=== PATIENT | male | born 1970 | race Caucasian/White ===

== ENCOUNTER → 2021-02-06 10:15 | Outpatient (BNVA) | payer OTHER, SELFPAY | PROVIDERS: Visit Provider Family Medicine | DX: I10 Essential (primary) hypertension (principal); H93.12 Tinnitus, left ear; Z13.220 Encounter for screening for lipoid disorders; Z13.6 Encounter for screening for cardiovascular disorders; Z13.1 Encounter for screening for diabetes mellitus; T88.7XXA Unspecified adverse effect of drug or medicament, initial encounter | CPT/HCPCS: 80053; 80061 ==

== ENCOUNTER → 2021-10-28 10:20 | Outpatient (BNVA) | payer OTHER, SELFPAY | PROVIDERS: Visit Provider Nurse Practitioner Family | DX: Z20.822 Contact with and (suspected) exposure to COVID-19 (principal) | CPT/HCPCS: 87635 ==

== ENCOUNTER → 2022-03-06 15:31 | Outpatient (BNVA) | payer OTHER, SELFPAY | PROVIDERS: PCP Family Medicine; Visit Provider Family Medicine | DX: I10 Essential (primary) hypertension (principal); Z72.0 Tobacco use | CPT/HCPCS: 80053; 80061 ==

== ENCOUNTER → 2023-03-31 13:46 | Outpatient (BNVA) | payer OTHER, SELFPAY | PROVIDERS: PCP Family Medicine; Visit Provider Family Medicine | DX: I10 Essential (primary) hypertension (principal); I16.0 Hypertensive urgency; Z72.0 Tobacco use; Z13.220 Encounter for screening for lipoid disorders; Z13.6 Encounter for screening for cardiovascular disorders; Z53.20 Procedure and treatment not carried out because of patient's decision for unspecified reasons | CPT/HCPCS: 80053; 80061 ==

== ENCOUNTER → 2024-03-18 13:29 | Outpatient (BNVA) | payer OTHER, SELFPAY | PROVIDERS: PCP Family Medicine; Visit Provider Family Medicine | DX: I10 Essential (primary) hypertension (principal); R73.9 Hyperglycemia, unspecified; Z72.0 Tobacco use; Z13.220 Encounter for screening for lipoid disorders; Z13.6 Encounter for screening for cardiovascular disorders; Z53.20 Procedure and treatment not carried out because of patient's decision for unspecified reasons | CPT/HCPCS: 80053; 80061; 83036 ==

== ENCOUNTER → 2024-07-13 09:36 | Outpatient (BNVA) | payer OTHER, SELFPAY | PROVIDERS: PCP Family Medicine; Visit Provider Nurse Practitioner | DX: R19.7 Diarrhea, unspecified (principal) | CPT/HCPCS: 87045; 87177; 87209; 87427; 87449 ==

== ENCOUNTER → 2025-03-15 14:42 | Outpatient (BNVA) | payer OTHER, SELFPAY | PROVIDERS: PCP Family Medicine; Visit Provider Family Medicine | DX: Z13.6 Encounter for screening for cardiovascular disorders (principal); Z12.5 Encounter for screening for malignant neoplasm of prostate; Z13.220 Encounter for screening for lipoid disorders; I10 Essential (primary) hypertension; R10.9 Unspecified abdominal pain; R19.7 Diarrhea, unspecified; R73.9 Hyperglycemia, unspecified; Z83.79 Family history of other diseases of the digestive system | CPT/HCPCS: 80053; 80061; 82784; 83516; 85025; G0103 ==

== ENCOUNTER → 2025-06-14 08:17 | Outpatient (BNVA) | payer OTHER, SELFPAY | PROVIDERS: PCP Family Medicine; Referring Provider Family Medicine; Visit Provider Family Medicine | DX: E78.5 Hyperlipidemia, unspecified (principal); D72.829 Elevated white blood cell count, unspecified | CPT/HCPCS: 80061; 85025 ==

== ENCOUNTER 2025-06-27 15:27 | Outpatient (CLI) | payer OTHER, SELFPAY ==
--- NOTE | 2025-06-27 15:45 | US_ITS ---
WS: [id number] ULTRASOUND ABDOMEN CLINICAL INFORMATION: F10.11 - Alcohol abuse, in remission COMPARISON: None. FINDINGS: Craniocaudal length: 15.8 cm. Echogenicity: Coarse Surface nodularity: Present Mass (size and location): None. Bile ducts Intrahepatic ducts: Normal. Common bile duct diameter: 0.7 cm. Gallbladder Normal. Gallstones: None. Gallbladder sludge: None. Gallbladder wall thickening: None. Pericholecystic fluid: None. Sonographic Hernandez sign: Absent. Pancreas Normal as visualized. Spleen Splenomegaly: None. Craniocaudal length: 11.0 cm. Right kidney: Normal. Hydronephrosis: None. Size: 10.8 cm x 6.1 cm x 5.8 cm Left kidney: Normal. Hydronephrosis: None. Size: 11.2 cm x 5.6 cm x 5.7 cm. Abdominal aorta and IVC Visualized portions are normal. Ascites: None. US/US abdomen complete* [id number] IMPRESSION: 1. Slightly nodular cirrhotic appearance to the liver. 2. Normal size spleen. 3. Normal gallbladder and common bile duct. 4. No hydronephrosis in either kidney. 5. No other acute findings.
--- NOTE | 2025-06-27 16:05 | XR_ITS ---
WS: [id number] Cervical spine, 3 views, 06/27/2025 Clinical Data: M54.12 - Radiculopathy, cervical region Comparison: None. Findings: No compression fractures are seen. There is disc narrowing at C5-C6 with anterior osteophytes. There is no prevertebral soft tissue swelling. The odontoid is unremarkable. The soft tissues of the neck and the lung apices are normal. XR/XR cervical spine 3V* [id number] Impression: Degenerative disc narrowing at C5-C6 with anterior osteophytes.
== END 2025-06-27 15:28 | disposition home or self-care (01) ==
LOC: RAD 15:28
PROVIDERS: PCP Family Medicine; Visit Provider Family Medicine
DX: M50.122 Cervical disc disorder at C5-C6 level with radiculopathy (principal); F10.11 Alcohol abuse, in remission; K52.9 Noninfective gastroenteritis and colitis, unspecified; M50.322 Other cervical disc degeneration at C5-C6 level
CPT/HCPCS: 72040; 76700

== ENCOUNTER 2025-09-07 15:02 | Outpatient (CLI) | payer OTHER, SELFPAY ==
--- NOTE | 2025-09-07 15:15 | MR_ITS ---
WS: [id number] MRI CERVICAL SPINE NONCONTRAST HISTORY: M54.12 - Radiculopathy, cervical region COMPARISON: None available. Technique: Multiplanar, multisequence noncontrast imaging of the cervical spine. Mild straightening of the normal cervical lordosis. No fractures or marrow edema. Mild disc desiccation at C5-6 and C6-7. Signal within the cervical cord is normal. Visualized posterior fossa is unremarkable. Craniocervical junction, C1 and C2 relationship, odontoid process and soft tissues are normal. C2-C3: Normal. C3-C4: Mild LEFT facet arthritis. No significant stenosis. C4-C5:. Mild osteophytic ridging and mild facet arthritis. Minimal narrowing of the LEFT foramen. C5-C6: Mild disc bulging with osteophytic ridging. There is disc osteophyte encroachment upon the ventral thecal sac and narrowing of the foramen. Mild to moderate central and moderate foraminal stenosis. C6-C7: Diffuse osteophytic ridging and annular disc bulging. Slightly more focal central broad-based protrusion. Mild bilateral facet arthritis. Mild to moderate central and moderate foraminal stenosis. C7-T1: No central stenosis. Mild foraminal narrowing and facet arthritis. Paraspinal soft tissue are normal. MR/MR cervical spin wo con* [id number] IMPRESSION: 1. No acute fractures or cord myelomalacia. 2. C5-6 and C6-7: Mild to moderate central and moderate foraminal stenosis due to combination of disc osteophyte complexes and facet arthritis. 3. Very minimal LEFT foraminal narrowing at C4-5 and bilaterally at C7-T1.
== END 2025-09-07 15:03 | disposition home or self-care (01) ==
LOC: RAD 15:03
PROVIDERS: PCP Family Medicine; Visit Provider Nurse Practitioner Family
DX: M54.12 Radiculopathy, cervical region (principal); M47.892 Other spondylosis, cervical region; M25.78 Osteophyte, vertebrae; M50.323 Other cervical disc degeneration at C6-C7 level; M48.02 Spinal stenosis, cervical region; M48.03 Spinal stenosis, cervicothoracic region; M47.893 Other spondylosis, cervicothoracic region; M50.322 Other cervical disc degeneration at C5-C6 level
CPT/HCPCS: 72141